=== PATIENT | male | born 1950 | race Caucasian/White ===

== ENCOUNTER 2017-01-08 08:18 | Emergency (ER) | payer OTHER ==
[2017-01-08 08:35] VITALS: BP 135/95
--- NOTE | 2017-01-08 09:07 | EDM.PDOC ---
ED HPI GENERAL MEDICAL PROBLEM - General Chief Complaint: Lower Extremity Injury/Pain Stated Complaint: HURT BIG TOE (LT FOOT) Time Seen by Provider: 01/08/17 08:55 Source of Information: Reports: Patient, Family History Limitations: Reports: No Limitations - History of Present Illness INITIAL COMMENTS - FREE TEXT/NARRATIVE: 66-year-old gentleman presents emergency department day complaint of left great toe pain, he states he did have some trauma last night when a small child landed on his great toe but he didn't think much of it this morning he awoke with pain predominately over the metatarsal region he has no history of gout - Related Data Allergies Allergy/AdvReac Type Severity Reaction Status Date / Time No Known Allergies Allergy Verified 01/08/17 08:35 Home Meds: Home Meds Alfuzosin [Uroxatral] 1 tab PO BEDTIME 01/08/17 [History] Metoprolol Tartrate 60 mg PO BID 01/08/17 [History] NIFEdipine [Adalat cc] 1 tab PO DAILY 01/08/17 [History] Terazosin [Hytrin] 1 cap PO DAILY 01/08/17 [History] Past Medical History Cardiovascular History: Reports: Hypertension Genitourinary History: Reports: BPH - Past Surgical History HEENT Surgical History: Reports: Tonsillectomy Social & Family History - Tobacco Use Smoking Status *Q: Current Every Day Smoker Years of Tobacco use: 53 Packs/Tins Daily: 1 - Caffeine Use Caffeine Use: Reports: Coffee - Alcohol Use Days Per Week of Alcohol Use: 7 Number of Drinks Per Day: 6 Total Drinks Per Week: 42 Date of Last Drink: 01/07/17 Time of Last Drink: 22:00 - Recreational Drug Use Recreational Drug Use: No Review of Systems - Review of Systems Review Of Systems: See Below Musculoskeletal: Reports: Joint Pain (Great toe) Skin: Reports: Rash (Over the great toe) ED EXAM, GENERAL - Physical Exam Exam: See Below Free Text/Narrative:: Examination left foot pedal pulse 2+ on appreciate any edema in the ankle is some mild erythema appreciated around the great toe he is exquisitely tender to the touch over the first metatarsal region Course - Vital Signs Last Recorded V/S: Last Vital Signs Temp 98.2 F 01/08/17 08:52 Pulse 70 01/08/17 08:52 Resp 15 01/08/17 08:52 BP 135/95 H 07/04/17 08:52 Pulse Ox 93 L 01/08/17 08:52 - Orders/Labs/Meds Orders: Active Orders 24 hr Category Date Time Status Toes Great Toe Lt TA [CR] Stat Exams 01/08/17 08:58 Taken Labs: Laboratory Tests 01/08/17 Range/Units 09:05 Uric Acid 7.0 (3.5-7.2) mg/dL Departure - Departure Time of Disposition: 10:10 Disposition: Home, Self-Care 01 Condition: Good Clinical Impression: Gout attack Qualifiers: Gout site: toe Gout etiology: unspecified cause Laterality: left Qualified Code (s): M10.9 - Gout, unspecified - Discharge Information Forms: ED Department Discharge Additional Instructions: Take full course of colchicine, use hydrocodone as needed for pain control, Please followup with your primary care provider in 3-5 days if not better, please call return to the emergency department with worsening of symptoms. - Problem List Review Problem List Initiated/Reviewed/Updated: Yes - My Orders Last 24 Hours: My Active Orders 01/08/17 08:58 Toes Great Toe Lt TA [CR] Stat - Assessment/Plan Last 24 Hours: My Active Orders 01/08/17 08:58 Toes Great Toe Lt TA [CR] Stat Plan: Assessment Acuity = acute Site and laterality = probable gouty arthritis digit #1 left foot Etiology = unclear etiology Manifestations = pain Location of injury = Home Lab values = great toe x-ray I did review films myself I cannot appreciate any acute process, the official read from radiology is pending, uric acid normal at 7 Plan I did review lab work in next the results with him to try empiric treatment with colchicine he is also provided hydrocodone for pain control and follow-up with his primary care provider next 3-5 days for reevaluation if no improvement Patient was in agreement with the plan all questions were answered, they were instructed to return to the emergency department or call for worsening symptoms. This note was dictated using [employer] voice recognition software please call with any questions.
--- NOTE | 2017-01-09 08:28 | CR ---
No fracture or dislocation.
== END 2017-01-08 10:21 | disposition home or self-care (01) ==
LOC: JP.ED 08:18
DX: M10.9 Gout, unspecified (principal); F17.210 Nicotine dependence, cigarettes, uncomplicated; I10 Essential (primary) hypertension; Z98.890 Other specified postprocedural states; Z79.899 Other long term (current) drug therapy
CPT/HCPCS: 36415; 73660-26-TA; 73660-TA; 84550; 99284